=== PATIENT | male | born 1965 | race Caucasian/White ===

== ENCOUNTER 2019-10-06 15:11 | Outpatient (CLI) | payer OTHER ==
[2019-10-08 15:11] LABS: HSV 1 IGG TYPE SPECIFIC AB 27.4 index; HSV 2 IGG TYPE SPECIFIC AB 1.31 index
== END 2019-10-06 15:12 | disposition home or self-care (01) ==
LOC: LAB.S 15:11
PROVIDERS: ATTEND Family Medicine
DX: Z11.3 Encounter for screening for infections with a predominantly sexual mode of transmission (principal)
CPT/HCPCS: 36415; 86695; 86696

== ENCOUNTER 2020-05-03 11:31 | Emergency (ER) | payer OTHER ==
--- NOTE | 2020-05-03 12:20 | XRAY Report ---
PROCEDURE: Finger(s) LT INDICATIONS: crush injury TECHNIQUE: AP hand, 3 views of the left middle finger(s) acquired. COMPARISON: None. FINDINGS: Bones: Moderately comminuted fracture involving the distal phalanx of the left middle finger . Remain sg of the osseous structures appear intact. Alignment is anatomic. No suspicious bony lesions. Soft tissues: No suspicious soft tissue calcifications. IMPRESSION: Comminuted distal phalanx fracture of the left middle finger. This is an open type fracture given rep orted history of open soft tissue wound. Reviewed by: Jose Doty MD on 05/03/2020 12:18 PM PDT Approved by: Jose Doty MD on 05/03/2020 12:18 PM PDT Station ID: [id number]
[2020-05-03] MEDS ORDERED: BACITRACIN ZINC OINT 1 PACKET TOP STA (12:47)
[2020-05-03] MEDS ORDERED: TETANUS/DIPHTHERIA/PERTUSSIS 0.5 ML SYRINGE IM ONE (12:47)
--- NOTE | 2020-05-03 12:47 | ED Physician Documentation ---
PD HPI UPPER EXT INJURY - Stated complaint Stated Complaint: L MIDDLE FINGER INJ - Chief complaint Chief Complaint: Ext Problem - History obtained from History obtained from: Patient - History of Present Illness Location: Left, Finger Type of injury: Blunt / blow, Crush Where injury occurred: Home Timing - onset: How many hours ago (7) Timing - details: Abrupt onset Pain level max: 10 Improved by: Rest, Ice Worsened by: Moving, Palpating Associated symptoms: Numbness Similar symptoms before: Has not had sx before - Additonal information Additional information: 54-year-old male comes to the emergency department with chief complaint of acute left middle finger pain.He sustained a crushing injury early this morning when an approximately 20 pound rock fell from a height of about 4 feet directly onto the middle finger. On initial exam the nail appears completely avulsed away from the nailbed.Trace shows likely open fracture of the distal phalanx.Patient is right-handed. Bleed is controlled.Patient has some subjective numbness of the tip of the left finger though on exam it is quite tender to touch. PD PAST MEDICAL HISTORY - Past Medical History Past Medical History: No - Past Surgical History Past Surgical History: No - Present Medications Home Medications: Ambulatory Orders Medication Instructions Recorded Confirmed Cephalexin [Keflex] 500 mg PO Q6H #28 capsule 05/03/20 Hydrocodone/Acetaminophen 1 - 2 each PO Q6H PRN #14 tablet 05/03/20 [Hydrocodon-Acetaminophen 5-325] - Allergies Allergies/Adverse Reactions: Allergies Allergy/AdvReac Type Severity Reaction Status Date / Time shrimp Allergy Anaphylaxis Verified 05/03/20 11:38 - Social History Does the pt smoke?: No Smoking Status: Never smoker Does the pt drink ETOH?: No Does the pt have substance abuse?: No - Immunizations Immunizations are current?: Yes - POLST Patient has POLST: No PD ED PE EXPANDED - Extremities Extremities: Left finger(s) (Left distal middle finger with complete nail bed avulsion. Nailbed itself is quite macerated. Lateral edges of distal fingertip split open.) Results - Vitals Vitals: Vital Signs - 24 hr 05/03/20 11:34 Temperature 36.6 C Heart Rate 90 Respiratory 18 Rate Blood Pressure 135/95 H O2 Saturation 98 Oxygen O2 Source Room air - Rads (name of study) Left hand: Radiology: Final report received (Comminuted distal phalanx fracture of the left middle finger. This is an open type fracture given report reported history of open soft tissue wound) Procedures - Laceration (location) left finger Wound type: Other (macerated nail bed) Neurovascular status: Sensory intact, Motor intact, Vascular intact Anesthesia: Lidocaine 1% Wound Preparation: Chlorhexadine, Irrigated copiously NS, Wound edges modified Deep layer closure: Vicryl, # sutures - enter number (3) Other: Patient tolerated well, No complications, Neurovascular intact Complexity: Intermediate (Macerated distal fingertip injury secondary to a crush injury. Attempted to approximate distal Lateral edges with five-point 0 Vicryl in order to help decrease bleeding.) PD MEDICAL DECISION MAKING - ED course Complexity details: re-evaluated patient, d/w patient ED course: 54-year-old male presents to the emergency department with a left middle distal finger crush injury when a heavy rock fell on it approximately 6 hours ago. - Patient sustained a nail avulsion. The nailbed itself is quite macerated. - X-ray shows a comminuted distal phalanx fracture. - Wound was difficult to close. Attempted to close lateral edges of the finger with Vicryl. Bleeding persisted. He was placed in bacitracin and Xeroform. He will return tomorrow for wound check - He will be referred to orthopedics for follow-up. Patient given Ancef in the emergency department. Will prescribe Keflex on discharge.We will also prescribe a limited number of Vicodin. - Emergent return precautions discussed peer Departure - Departure Disposition: 01 Home, Self Care Clinical Impression: Finger fracture, left Qualifiers: Encounter type: initial encounter Finger: middle finger Fracture type: open Phalanx: distal Fracture alignment: displaced Qualified Code(s): S62.633B - Displaced fracture of distal phalanx of left middle finger, initial encounter for open fracture Nail avulsion, finger Qualifiers: Encounter type: initial encounter Qualified Code(s): S61.309A - Unspecified open wound of unspecified finger with damage to nail, initial encounter Condition: Stable Instructions: ED Fx Finger Open Ch Follow-Up: [facility] [Provider Group] - Within 1 week Prescriptions: Hydrocodone/Acetaminophen [Hydrocodon-Acetaminophen 5-325] 1 - 2 each PO Q6H PRN #14 tablet PRN Reason: pain Cephalexin [Keflex] 500 mg PO Q6H #28 capsule Comments: Donta is important that you fill the prescription for the antibiotics today and begin taking as directed. I have also prescribed a limited number of Vicodin for pain control at home. Unfortunately your injury has resulted in a very macerated nailbed. The distal tip of your finger is also broken. I have referred you to orthopedics. Please call to schedule an appointment as soon as possible. Leave your dressing in place overnight. Please return to the emergency department tomorrow for a wound check. The sutures that are placed are absorbable and will not need to be removed.
[2020-05-03] MEDS ORDERED: BUFFERED LIDOCAINE 10 ML SYRINGE SUBQ STA (12:48)
[2020-05-03] MEDS ORDERED: ceFAZolin 1 GM VIAL IM STA (12:58)
[2020-05-03 14:07] VITALS: BP 112/85
== END 2020-05-03 14:11 | disposition home or self-care (01) ==
LOC: ED 11:31
DX: S62.633B Displaced fracture of distal phalanx of left middle finger, initial encounter for open fracture (principal); W20.8XXA Other cause of strike by thrown, projected or falling object, initial encounter; Y93.89 Activity, other specified; Y92.832 Beach as the place of occurrence of the external cause
CPT/HCPCS: 12041; 73140; 90471; 90715; 96372; 99281; 99283; A9270

== ENCOUNTER 2020-05-04 08:03 | Emergency (ER) | payer OTHER ==
[2020-05-04 08:15] VITALS: BP 137/89
--- NOTE | 2020-05-04 08:29 | ED Physician Documentation ---
PD HPI UPPER EXT INJURY - Stated complaint Stated Complaint: WOUND CHECK/L HAND - Chief complaint Chief Complaint: Wound - History obtained from History obtained from: Patient - History of Present Illness Location: Left, Finger Pain level max: 3 Pain level now: 1 Improved by: Rest Worsened by: Moving - Additonal information Additional information: 54-year-old male is status post a crush injury to the distal left third digit. Here for a wound check. No complaints. No fever. No redness. No swelling. Wound was repaired yesterday Review of Systems Constitutional: denies: Fever Skin: denies: Rash PD PAST MEDICAL HISTORY - Past Medical History Past Medical History: No - Past Surgical History Past Surgical History: No - Present Medications Home Medications: Ambulatory Orders Medication Instructions Recorded Confirmed Cephalexin [Keflex] 500 mg PO Q6H #28 capsule 05/03/20 Hydrocodone/Acetaminophen 1 - 2 each PO Q6H PRN #14 tablet 05/03/20 [Hydrocodon-Acetaminophen 5-325] - Allergies Allergies/Adverse Reactions: Allergies Allergy/AdvReac Type Severity Reaction Status Date / Time iodine Allergy Anaphylaxis Verified 05/04/20 08:15 prednisone Allergy Anaphylaxis Verified 05/04/20 08:16 shrimp Allergy Anaphylaxis Verified 05/03/20 11:38 - Social History Does the pt smoke?: No Smoking Status: Never smoker Does the pt drink ETOH?: No Does the pt have substance abuse?: No - Immunizations Immunizations are current?: Yes - POLST Patient has POLST: No PD ED PE NORMAL - Vitals Vital signs reviewed: Yes - General General: Alert and oriented X 3, No acute distress - HEENT HEENT: Moist mucous membranes - Derm Derm: Warm and dry - Extremities Extremities: Other (Left hand - Healing laceration to the distal left third finger. Neurovascular intact. No signs of infection.) - Neuro Neuro: Alert and oriented X 3 Results - Vitals Vitals: Vital Signs - 24 hr 05/04/20 08:09 Temperature 36.9 C Heart Rate 91 Respiratory 16 Rate Blood Pressure 137/89 H O2 Saturation 99 Oxygen O2 Source Room air PD MEDICAL DECISION MAKING - ED course Complexity details: reviewed old records, considered differential, d/w patient ED course: The dressings were removed. Replaced with Mepitel and Kerlix. Foam splint placed for comfort. We will have the patient follow-up with his doctor on Thursday for a repeat wound check. Warnings of infection and instructions on wound care given at bedside. Patient counseled regarding signs and symptoms for which I believe and urgent re-evaluation would be necessary. Patient with good understanding of and agreement to plan and is comfortable going home at this time This document was made in part using voice recognition software. While efforts are made to proofread this document, sound alike and grammatical errors may occur. Departure - Departure Disposition: Home, Self Care Clinical Impression: Visit for wound check Condition: Good Instructions: ED Sutr Check No Infec Follow-Up: Segundo Gonzalez MD [Primary Care Provider] - Within 3 Days Comments: Follow-up with your doctor on Thursday for a wound check. Return if you worsen. The Mepitel can stay in place for up to 10 days. Be sure to change the outer dressings whenever soiled or daily. You can apply bacitracin or another antibiotic ointment as well. Continue the oral antibiotics you were given.
== END 2020-05-04 08:41 | disposition home or self-care (01) ==
LOC: ED 08:03
DX: S61.213A Laceration without foreign body of left middle finger without damage to nail, initial encounter (principal); X58.XXXA Exposure to other specified factors, initial encounter
CPT/HCPCS: 99282

== ENCOUNTER 2020-06-08 07:43 | Outpatient (CLI) | payer OTHER ==
--- NOTE | 2020-06-08 18:42 | XRAY Report ---
PROCEDURE: Finger(s) LT INDICATIONS: LEFT MIDDLE FINGER FRACTURE TECHNIQUE: 3 views of the left third finger(s) acquired. COMPARISON: 05/03/2020 FINDINGS: Bones: Comminuted, displaced tuft fracture of the third digit is redemonstrated with persistent displ acement of fracture fragments. There is slightly progressive angulation of the distal fracture fragme nts towards the dorsal side there has been partial resorption of a few of the fragments. The DIP join t remains normal. No suspicious bony lesions. Soft tissues: No suspicious soft tissue calcifications. IMPRESSION: Comminuted tuft fracture of the third distal phalanx is again noted. There is been partial resorption of a few fragments and progression of slight dorsal angulation. Reviewed by: Autumn Lowe MD on 06/08/2020 3:50 PM [facility] Approved by: Autumn Lowe MD on 06/08/2020 3:50 PM [facility] Station ID: [id number]
== END 2020-06-08 23:59 | disposition home or self-care (01) ==
LOC: DI.WCP 07:43
PROVIDERS: ATTEND Orthopaedic Surgery
DX: S62.633D Displaced fracture of distal phalanx of left middle finger, subsequent encounter for fracture with routine healing (principal)
CPT/HCPCS: 73140

== ENCOUNTER 2021-09-09 16:44 | Outpatient (CLI) | payer OTHER | END 2021-09-09 16:45 | disposition home or self-care (01) | LOC: COV 16:44 | PROVIDERS: ATTEND Family Medicine | DX: Z20.822 Contact with and (suspected) exposure to COVID-19 (principal) ==

== ENCOUNTER 2021-10-07 08:00 | Outpatient (CLI) | payer OTHER ==
--- NOTE | 2021-10-07 16:43 | XRAY Report ---
PROCEDURE: Knee 3 View LT INDICATIONS: SPRAIN OF LEFT KNEE TECHNIQUE: 3 views of the left knee(s) were acquired. COMPARISON: None. FINDINGS: Bones: No fractures or dislocations. No suspicious bony lesions. Mild tricompartmental osteoarthri tis is seen more prominent in medial femoral tibial compartment. No patella subluxation. Soft tissues: No significant joint effusion. No suspicious soft tissue calcifications. 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 No fracture or dislocation. No significant joint effusion. Reviewed by: Herb Escobar MD on 10/07/2021 4:42 PM PST Approved by: Herb Escobar MD on 10/07/2021 4:42 PM PST Station ID: [id number]
== END 2021-10-07 23:59 | disposition home or self-care (01) ==
LOC: DI.S 08:00
PROVIDERS: ATTEND Physician Assistant
DX: S83.412A Sprain of medial collateral ligament of left knee, initial encounter (principal); M17.12 Unilateral primary osteoarthritis, left knee